=== PATIENT | male | born 1980 | race Caucasian/White ===

== ENCOUNTER 2018-02-27 18:49 | Inpatient (IN) | payer SELFPAY ==
[~2018-02-27] VITALS: Ht 177.8 cm; Wt 95.3 kg
[~2018-02-27 18:49] MED LIST: PLAVIX75 MG PO
[2018-02-27] MEDS ORDERED: DIPHENHYDRAMINE HCL INJ 50 MG/ML VIAL IV ONE (19:30)
[2018-02-27] MEDS ORDERED: FAMOTIDINE 20 MG/2 ML VIAL IV ONE (19:30)
[2018-02-27] MEDS ORDERED: SODIUM CHLORIDE 0.9% 1000ML 1,000 ML IV STA (19:30)
[2018-02-27] MEDS ORDERED: PROMETHAZINE 25MG/ NS 50ML (IV) IV ONE (19:30)
[2018-02-27] MEDS ORDERED: MORPHINE SULFATE 2 MG/ML SYR INJ STA (19:30)
[2018-02-27 19:42] LABS: BASOPHILS % 0.2 % (0.0-1.0); EOSINOPHILS % 0.4 % (0.0-6.0); HEMATOCRIT 29.3 % (38.2-49.6); HEMOGLOBIN 8.8 g/dL (14.0-18.0); LYMPHOCYTES # (AUTO) 0.4 (1.0-3.2); LYMPHOCYTES % 6.8 % (18.0-39.1); MEAN CORPUSCULAR HEMOGLOBIN 26.9 pg (28-32); MEAN CORPUSCULAR VOLUME 89.6 fL (81-99); MONOCYTES # (AUTO) 0.5 (0.2-0.8); MONOCYTES % 10.3 % (4.4-11.3); NEUTROPHILS # (AUTO) 4.1 (2.1-6.9); NEUTROPHILS % 80.5 % (38.7-80.0); PLATELET COUNT 234 x10e3/uL (140-360); RED BLOOD COUNT 3.27 x10e6/uL (4.3-5.7); RED CELL DISTRIBUTION WIDTH 18.6 % (11.7-14.4)
[2018-02-27] MEDS ORDERED: DIPHENHYDRAMINE HCL INJ 50 MG/ML VIAL ONE (19:47)
[2018-02-27 19:55] LABS: ALANINE AMINOTRANSFERASE 34 IU/L (0-55); ALBUMIN 2.7 g/dL (3.5-5.0); ALBUMIN/GLOBULIN RATIO 0.9 (0.8-2.0); ALKALINE PHOSPHATASE 117 IU/L (40-150); ANION GAP 15.3 mmol/L (8-16); BLOOD UREA NITROGEN 5 mg/dL (7-26); BUN/CREATININE RATIO 7 (6-25); CALCIUM 8.6 mg/dL (8.4-10.2); CARBON DIOXIDE 21 mmol/L (22-29); CHLORIDE 109 mmol/L (98-107); EST GLOMERULAR FILTRATION RATE > 60 ML/MIN (60-); GLUCOSE 107 mg/dL (74-118); POTASSIUM 3.3 mmol/L (3.5-5.1); SODIUM 142 mmol/L (136-145)
--- NOTE | 2018-02-27 20:42 | Diagnostic Imaging Report ---
EXAMINATION: CHEST SINGLE (PORTABLE) INDICATION: \S\look for pneumonia \S\[id number] \S\2024 COMPARISON: None FINDINGS: AP view TUBES and LINES: Left central venous catheter with tip overlying the superior right atrium. LUNGS: Lungs are well inflated. Medial right lower lobe consolidation. PLEURA: No pleural effusion or pneumothorax. HEART AND MEDIASTINUM: The cardiomediastinal silhouette is unremarkable.. BONES AND SOFT TISSUES: No acute osseous lesion. Soft tissues are unremarkable. UPPER ABDOMEN: No free air under the diaphragm. IMPRESSION: Right medial lower lobe consolidation suggestive of pneumonia. Recommend follow-up chest radiograph in 4-6 weeks. Signed by: Dr. Kamila Odell M.D. on 02/27/2018 8:39 PM
[2018-02-27 21:05] LABS: LYMPHOCYTES % (MANUAL) 4 % (19-48); MONOCYTES % (MANUAL) 7 % (3.4-9.0); NEUTROPHILS % (MANUAL) 89 % (40-74); PLATELET ESTIMATE ADEQUATE; PLATELET MORPHOLOGY COMMENT NORMAL; RBC MORPHOLOGY COMMENT NORMAL
[2018-02-27 21:06] LABS: ANISOCYTOSIS SLIGHT; POIKILOCYTOSIS SLIGHT
--- NOTE | 2018-02-27 21:10 | Diagnostic Imaging Report ---
EXAMINATION: CT of the lumbar spine HISTORY: Broke back 2 weeks ago, acute pain COMPARISON: None available TECHNIQUE: Multidetector helical axial images were obtained without contrast from L1 to S1. The images were reconstructed using bone and soft tissue algorithms and were viewed in axial, sagittal, and coronal planes. Dose modulation, iterative reconstruction, and/or weight based adjustment of the mA/kV was utilized to reduce the radiation dose to as low as reasonably achievable. FINDINGS: Alignment: Normal alignment and lordosis. Vertebral bodies: -Diffuse osteopenia L3-L4 intervertebral disc. -Age indeterminate likely chronic moderate compression fracture of the L2, L3 and L4 vertebral bodies, with decreased vertebral body height by approximately 40-50%, with depression of the superior endplate. Minimal about 2 mm posterior retropulsion of the superior endplates of L2, L3 and L4, with mild canal narrowing at L3-L4. -Mild chronic compression fracture of the L1 vertebral body, with depression of the superior endplate and decreased vertebral body height by approximately 30% centrally, no posterior retropulsion. Minimal chronic anterior wedging of the T12 vertebral body. -Status post percutaneous vertebral cement injection at L4, with small amount of cement extruded within the L3-L4 intervertebral disc. Paraspinal muscles: Mild atrophy of the lumbosacral spinal muscles. Partially visualized IVC filter. Intervertebral disks: L1-L2: Normal. L2-L3: Minimal symmetric disc bulge without stenosis. L3-L4: Mild symmetric disc bulge and facet arthrosis. Mild canal and foraminal narrowing. L4-L5: Mild symmetric disc bulge without significant stenosis. L5-S1: Minimal symmetric disc bulge without stenoses. IMPRESSION: 1. Age-indeterminate likely chronic moderate compression fractures of the L2, L3 and L4 vertebral bodies. Comparison to prior studies is recommended to determine stability of these findings. 2. Mild chronic compression fractures of the T12 and L1 vertebral bodies. 3. Minimal posterior retropulsion and disc bulge at L3-L4 results in mild canal and foraminal narrowing. 4. Status post percutaneous vertebral cement injection at L4. 5. Severe osteopenia. Signed by: Dr. Lindsay Singh M.D. on 02/27/2018 9:07 PM
[2018-02-27 21:13] LABS: AMPHETAMINES SCREEN,URINE NEGATIVE (NEGATIVE); CLARITY,URINE CLEAR (CLEAR); COLOR,URINE YELLOW (YELLOW); KETONES,URINE NEGATIVE (NEGATIVE); LEUKOCYTE ESTERASE ,URINE NEGATIVE (NEGATIVE); NITRITE,URINE NEGATIVE (NEGATIVE); PHENCYCLIDINE SCREEN,URINE NEGATIVE (NEGATIVE); PROTEIN,URINE DIPSTICK NEGATIVE (NEGATIVE)
[2018-02-27 21:14] LABS: BENZODIAZEPINES SCREEN,URINE NEGATIVE (NEGATIVE); BILIRUBIN,URINE NEGATIVE (NEGATIVE); URINE UROBILINOGEN 0.2 mg/dL (0.2 - 1)
[2018-02-27] MEDS ORDERED: VANCOMYCIN 1GM/NS 250 ML 250 ML IV ONE (21:15)
[2018-02-27 21:23] LABS: RBC,URINE 0-5 /HPF (0-5); WBC,URINE (MAN) 21-50 /HPF (0-5)
[2018-02-27 21:25] LABS: BACTERIA,URINE RARE /HPF
[2018-02-27 21:28] LABS: MUCUS,URINE MODERATE (RARE)
[2018-02-27] MEDS ORDERED: DIPHENHYDRAMINE HCL INJ 50 MG/ML VIAL IV PRN (21:30)
[2018-02-27] MEDS ORDERED: LACTULOSE SYRUP 20 GM/30 ML UDC PO PRN (21:30)
[2018-02-27] MEDS ORDERED: ZOLPIDEM TARTRATE 5 MG TAB PO PRN (21:30)
[2018-02-27] MEDS: PIPER-TAZ 3.375 GM 50 ML IV SCH (21:34)
[2018-02-27 21:52] LABS: CREATINE KINASE MB 1.1 ng/mL (0-5.0)
[2018-02-27] MEDS: D5.45%NS/KCL 20MEQ 1,000 ML IV SCH (22:00)
[2018-02-27] MEDS: ACETAMINOPHEN 325 MG TAB PO PRN (22:05)
[2018-02-27] MEDS ORDERED: LORAZEPAM INJ 2 MG/ML VIAL ONE (22:19)
[2018-02-27] MEDS ORDERED: LORAZEPAM INJ 2 MG/ML VIAL IV ONE (22:30)
[2018-02-27] MEDS ORDERED: ATIVAN2 MG IV (23:36)
[2018-02-27] MEDS ORDERED: DILAUDID2 MG IV (23:36)
[2018-02-27] MEDS ORDERED: KEPPRA500 MG IV (23:36)
[2018-02-27] MEDS ORDERED: METHOTREXATE SC (23:36)
[2018-02-27] MEDS ORDERED: DEXAMETHASONE4 MG IV (23:36)
[2018-02-27] MEDS ORDERED: PROMETHAZINE HC25 M1 IV (23:36)
[2018-02-27] MEDS ORDERED: METHYLPREDNISOLO8 MG IV (23:36)
[2018-02-27] MEDS ORDERED: HUMIRA40 MG/0.8 SC (23:36)
[2018-02-27] MEDS: METOPROLOL TARTRATE INJ 1 MG/ML VIAL IV SCH (23:43)
--- NOTE | 2018-02-27 23:59 | Diagnostic Imaging Report ---
EXAMINATION: MRI of the lumbar spine without contrast HISTORY: Broke back 2 weeks ago, status post fall today with worsening pain, evaluate for epidural abscess. COMPARISON: Lumbar spine CT performed on the same day TECHNIQUE: Sagittal T1, T2, STIR; axial T2 and proton density. Image quality: Motion artifact limits evaluation of most of the sequences in spite of sedation. Patient couldn't remain still. FINDINGS: It is assumed that there are 5 lumbar vertebrae. Curvature/Alignment: Normal lordosis. Vertebrae: -Prominent increased T1 bone marrow signal intensity related to fatty replacement, secondary to osteoporosis, disproportionate for patient's age and gender. -Again noted moderate compression fractures of the L2, L3 and L4 vertebral bodies, with subchondral bone marrow edema, consistent with recent fractures. Again there is decreased vertebral body height by approximately 40-50% without posterior retropulsion. Status post kyphoplasty/vertebroplasty of L4 with a small amount of cement within the L3-L4 disc, better visualized with CT performed on the same day. -Mild chronic compression fracture of the L1 vertebral body, with depression of the superior endplate and decreased vertebral body height by approximately 30% centrally, no posterior retropulsion. Conus: Normal, terminating at L1 Cauda equina: Unremarkable. Lower thoracic: Unremarkable. Paraspinal soft tissues: Unremarkable. Degenerative changes: L1-L2: Unremarkable. L2-L3: Mild symmetric folds and posterior processes. Minimal canal and foraminal narrowing. L3-L4: Mild symmetric disc bulge and facet processes. Mild canal and foraminal narrowing. L4-L5: Minimal disc bulge and facet arthrosis without stenosis. Left posterior paraspinal musculature edema from L4 to L5 which may correspond to muscle sprain. L5-S1: Minimal disc bulge and facet arthrosis without stenosis. IMPRESSION: Suboptimal study due to motion artifact. 1. No evidence of epidural abscess in this unenhanced study. 2. Acute osteoporotic compression fracture of the L2, L3 and L4 vertebral bodies without posterior retropulsion or canal stenosis. Comparison to prior studies is advised to determine stability. 3. Mild chronic compression fractures of the T12 and L1 vertebral bodies. 4. Mild degenerative canal and foraminal stenosis at L3-L4. 5. Left paraspinal muscle edema at L4-L5 may correspond to muscle sprain, which could explain patient's new pain. Signed by: Dr. Lindsay Singh M.D. on 02/27/2018 11:55 PM
[2018-02-28] VITALS (9 sets, daily range): BP systolic 124–173; BP diastolic 86–111
[2018-02-28] MEDS: MORPHINE SULFATE INJ 4 MG/ML INJ IV PRN ×2 (00:35→06:12)
[2018-02-28] MEDS: IPRATROPIUM BROMIDE 0.02% 2.5 ML NEB NEB SCH ×4 (01:30→20:32)
[2018-02-28] MEDS: PIPER-TAZ 3.375 GM 50 ML IV SCH ×4 (03:11→20:20)
[2018-02-28] MEDS ORDERED: VANCOMYCIN 1GM/NS 250 ML 250 ML IV SCH (04:00)
[2018-02-28] MEDS: D5.45%NS/KCL 20MEQ 1,000 ML IV SCH ×2 (05:30→13:30)
[2018-02-28] MEDS: METOPROLOL TARTRATE INJ 1 MG/ML VIAL IV SCH ×2 (06:12→12:23)
[2018-02-28 06:34] LABS: BASOPHILS % 0.6 % (0.0-1.0); EOSINOPHILS % 0.6 % (0.0-6.0); HEMATOCRIT 27.8 % (38.2-49.6); HEMOGLOBIN 8.2 g/dL (14.0-18.0); LYMPHOCYTES # (AUTO) 0.2 (1.0-3.2); MEAN CORPUSCULAR HEMOGLOBIN 26.7 pg (28-32); MEAN CORPUSCULAR HGB CONC 29.5 g/dL (31-35); MEAN CORPUSCULAR VOLUME 90.6 fL (81-99); MONOCYTES # (AUTO) 0.4 (0.2-0.8); MONOCYTES % 11.1 % (4.4-11.3); NEUTROPHILS # (AUTO) 2.7 (2.1-6.9); NEUTROPHILS % 78.9 % (38.7-80.0); PLATELET COUNT 216 x10e3/uL (140-360); RED BLOOD COUNT 3.07 x10e6/uL (4.3-5.7); RED CELL DISTRIBUTION WIDTH 18.9 % (11.7-14.4)
[2018-02-28 06:55] LABS: ANION GAP 12.3 mmol/L (8-16); BLOOD UREA NITROGEN < 5 mg/dL (7-26); BUN/CREATININE RATIO 7 (6-25); CARBON DIOXIDE 22 mmol/L (22-29); CHLORIDE 110 mmol/L (98-107); CREATININE, SERUM 0.74 mg/dL (0.72-1.25); EST GLOMERULAR FILTRATION RATE > 60 ML/MIN (60-); GLUCOSE 90 mg/dL (74-118); POTASSIUM 3.3 mmol/L (3.5-5.1); SODIUM 141 mmol/L (136-145)
[2018-02-28 07:19] LABS: CREATINE KINASE MB 0.8 ng/mL (0-5.0)
[2018-02-28 07:45] LABS: EOSINOPHILS % (MANUAL) 2 % (0-7); LYMPHOCYTES % (MANUAL) 3 % (19-48); MONOCYTES % (MANUAL) 7 % (3.4-9.0); NEUTROPHILS % (MANUAL) 88 % (40-74); NUCLEATED RED BLOOD CELLS 1
[2018-02-28 07:51] LABS: PLATELET ESTIMATE ADEQUATE; PLATELET MORPHOLOGY COMMENT NORMAL; RBC MORPHOLOGY COMMENT ABNORMAL
[2018-02-28 07:56] LABS: HYPOCHROMASIA SLIGHT
[2018-02-28 07:57] LABS: ANISOCYTOSIS MODE; OVALOCYTES FEW; POIKILOCYTOSIS SLIGHT; TEAR DROP CELLS FEW
[2018-02-28] MEDS: FAMOTIDINE 20 MG/2 ML VIAL IV SCH ×2 (08:46→18:11)
[2018-02-28] MEDS: PROMETHAZINE 25MG/ NS 50ML (IV) IV PRN ×2 (08:58→13:26)
[2018-02-28] MEDS: HYDROMORPHONE 1MG/1ML INJ IV PRN ×3 (09:20→20:19)
[2018-02-28] MEDS ORDERED: ACETAMINOPHEN 1000 MG/100 ML 100 ML IV ONE (09:23)
[2018-02-28 14:23] LABS: CREATINE KINASE MB 0.8 ng/mL (0-5.0)
[2018-02-28] MEDS ORDERED: PROMETHAZINE HCL 25 MG TAB PO PRN (14:30)
[2018-02-28 14:50] LABS: % IRON SATURATION 15 % (15-50); IRON 41 ug/dL (65-175); TOTAL IRON BINDING CAPACITY 272 ug/dL (261-478); TRANSFERRIN 194 mg/dL (174-364)
[2018-02-28] MEDS: POTASSIUM CHLORIDE 20MEQ/100ML 100 ML IV PRN (15:23)
[2018-02-28] MEDS: LORAZEPAM INJ 2 MG/ML VIAL IV PRN (16:35)
[2018-02-28] MEDS ORDERED: LEVETIRACETAM 500MG/5ML VIAL 500 MG in SODIUM CHLORIDE 0.9% 100 ML 100 ML IV SCH (16:45)
--- NOTE | 2018-02-28 16:59 | Diagnostic Imaging Report ---
Exam: Abdominal film Clinical History: Left lower quadrant abdominal pain for 3 days Comparison: None. DISCUSSION: Frontal view of the abdomen shows a nonobstructive bowel gas pattern with mild amount of retained stool.Likely high riding cecum. No air filled, dilated loops of bowel. There are no abnormal calcifications.No pneumoperitoneum. No acute bony abnormalities. Vertebroplasty changes L3. IVC filter in place. IMPRESSION: 1. Nonobstructive bowel gas pattern. The staff physician below has personally reviewed this exam on the date of dictation. Signed by: Dr. Ernesto Carlisle M.D. on 02/28/2018 4:55 PM
[2018-02-28] MEDS ORDERED: LEVETIRACETAM 500 MG TAB PO SCH (17:00)
--- NOTE | 2018-02-28 17:32 | History and Physical ---
The patient recently moved from [place]. Admitted after tripping and severe back pain. Warne like something popped in his back, and he developed numbness in the feet. He has a complex history including that of Crohn disease with multiple abdominal surgeries, chronically on TPN. He has been on tube feedings in the past and has a feeding tube. He has a history of glioblastoma multiforme diagnosed 10 months ago treated with radiation, transsphenoid resection and chemotherapy. He is currently scheduled to see Dr. Romeo for additional therapy. He has moved from [place], [place]. He has a history of IVC filter. He has had an L4 kyphoplasty in the past. He has had appendectomy, gallbladder surgery, colon and small-bowel resection. He has a small, short bowel. Old records are not available. His mother is bringing them. He denies smoking, drinking or drugs. Medications at home are listed as Humira, Decadron, Dilaudid, Keppra, Ativan, methotrexate, dexamethasone, Phenergan. He is complaining of back pain and blurred vision. Warne to have pneumonia on admitting chest x-ray, right lower lobe infiltrate. PHYSICAL EXAMINATION GENERAL: He is a well-developed, white male, somewhat cushingoid. VITALS: Temperature 98.1, pulse 87, blood pressure 154/111. HEENT: Head is normocephalic and atraumatic. Cushingoid. LUNGS: Clear anteriorly. HEART: Regular rhythm. Sinus tachycardia. ABDOMEN: Diffusely tender. A feeding tube is in place in the left upper quadrant. EXTREMITIES: Not edematous. catheter left chest wall IMPRESSION 1. Glioblastoma. 2. Anemia, possible iron deficiency possibly led to malabsorption. 3. Degenerative disease of the spine. Degenerative disk disease L2-3, L3-4, L4-5. Chronic fracture at T12-L1. Degenerative disease, L3-L4. Edema at L4-5. 4 pneumonia right lower lobe PLAN: GI, neurosurgical and neurology opinion. Support. Tube feedings. Oral feedings. Resume home medications. Awaiting old records. Therapy of pneumonia. Thank you for this kind referral. Job#: [id number] ALEXA GALLEGO
[2018-02-28] MEDS ORDERED: LORAZEPAM 1 MG TAB PO PRN (18:00)
[2018-02-28] MEDS ORDERED: LORAZEPAM 1 MG TAB PO SCH (18:00)
[2018-02-28] MEDS: LEVETIRACETAM 500MG/5ML VIAL 500 MG in SODIUM CHLORIDE 0.9% 100 ML 100 ML IV SCH (18:11)
[2018-02-28] MEDS: ACETAMINOPHEN 325 MG TAB PO PRN (22:00)
[2018-02-28] MEDS: DEXTROSE 5%/0.9% SOD CHL 1,000 ML IV SCH (22:22)
[2018-02-28] MEDS: AZITHROMYCIN 500MG/NS 250 ML 250 ML IV SCH (22:22)
[2018-02-28] MEDS: CLONIDINE HCL 0.1 MG/24 HR 1 EA PATCH TOP SCH (22:23)
[2018-03-01] VITALS (8 sets, daily range): BP systolic 153–173; BP diastolic 93–107
[2018-03-01] MEDS ORDERED: VANCOMYCIN 750MG/NS 150ML IVPB 150 ML IV SCH
[2018-03-01] MEDS: HYDROMORPHONE 1MG/1ML INJ IV PRN ×6 (01:23→22:30)
[2018-03-01] MEDS: PROMETHAZINE 25MG/ NS 50ML (IV) IV PRN ×2 (01:23→12:51)
[2018-03-01] MEDS: IPRATROPIUM BROMIDE 0.02% 2.5 ML NEB NEB SCH ×4 (01:47→19:00)
[2018-03-01] MEDS: LORAZEPAM INJ 2 MG/ML VIAL IV PRN ×3 (03:35→17:17)
[2018-03-01] MEDS: PIPER-TAZ 3.375 GM 50 ML IV SCH ×4 (03:35→21:34)
[2018-03-01] MEDS: METOCLOPRAMIDE HCL 10 MG/2ML VIAL IV SCH ×4 (05:20→23:40)
[2018-03-01] MEDS: LEVETIRACETAM 500MG/5ML VIAL 500 MG in SODIUM CHLORIDE 0.9% 100 ML 100 ML IV SCH ×2 (05:20→17:17)
[2018-03-01 06:02] LABS: BASOPHILS % 0.3 % (0.0-1.0); EOSINOPHILS % 0.6 % (0.0-6.0); HEMATOCRIT 26.4 % (38.2-49.6); LYMPHOCYTES # (AUTO) 0.3 (1.0-3.2); LYMPHOCYTES % 8.5 % (18.0-39.1); MEAN CORPUSCULAR HEMOGLOBIN 27.1 pg (28-32); MEAN CORPUSCULAR HGB CONC 30.3 g/dL (31-35); MEAN CORPUSCULAR VOLUME 89.5 fL (81-99); MONOCYTES # (AUTO) 0.4 (0.2-0.8); MONOCYTES % 12.3 % (4.4-11.3); NEUTROPHILS # (AUTO) 2.4 (2.1-6.9); NEUTROPHILS % 76.7 % (38.7-80.0); PLATELET COUNT 193 x10e3/uL (140-360); RED BLOOD COUNT 2.95 x10e6/uL (4.3-5.7); RED CELL DISTRIBUTION WIDTH 18.7 % (11.7-14.4)
[2018-03-01 06:28] LABS: ALANINE AMINOTRANSFERASE 30 IU/L (0-55); ALBUMIN 2.3 g/dL (3.5-5.0); ALBUMIN/GLOBULIN RATIO 0.9 (0.8-2.0); ALKALINE PHOSPHATASE 117 IU/L (40-150); ANION GAP 12.4 mmol/L (8-16); BLOOD UREA NITROGEN 5 mg/dL (7-26); BUN/CREATININE RATIO 7 (6-25); CARBON DIOXIDE 25 mmol/L (22-29); CHLORIDE 109 mmol/L (98-107); CREATININE, SERUM 0.68 mg/dL (0.72-1.25); EST GLOMERULAR FILTRATION RATE > 60 ML/MIN (60-); GLUCOSE 89 mg/dL (74-118); POTASSIUM 3.4 mmol/L (3.5-5.1); SODIUM 143 mmol/L (136-145)
[2018-03-01 07:43] LABS: BAND NEUTROPHILS % (MANUAL) 6 %; LYMPHOCYTES % (MANUAL) 13 % (19-48); METAMYELOCYTES % (MANUAL) 1 % (0-0); MONOCYTES % (MANUAL) 11 % (3.4-9.0); NEUTROPHILS % (MANUAL) 69 % (40-74); PLATELET ESTIMATE ADEQUATE; PLATELET MORPHOLOGY COMMENT NORMAL; RBC MORPHOLOGY COMMENT NORMAL
[2018-03-01] MEDS: FAMOTIDINE 20 MG/2 ML VIAL IV SCH ×2 (08:19→17:17)
[2018-03-01] MEDS: DEXAMETHASONE 4 MG TAB PO SCH (09:00)
[2018-03-01] MEDS: VANCOMYCIN 750MG/NS 150ML IVPB 150 ML IV SCH ×2 (09:15→22:02)
[2018-03-01] MEDS: DEXTROSE 5%/0.9% SOD CHL 1,000 ML IV SCH ×2 (10:05→21:35)
[2018-03-01] MEDS: POTASSIUM CHLORIDE 20MEQ/100ML 100 ML IV PRN (10:37)
[2018-03-01] MEDS: METOPROLOL TARTRATE INJ 1 MG/ML VIAL IV PRN ×2 (11:43→20:49)
--- NOTE | 2018-03-01 15:00 | Consultation ---
DATE OF CONSULTATION: March 01, 2018 NEUROLOGY CONSULT HISTORY OF PRESENT ILLNESS: Mr. Borges is a 37-year-old [id number] man with past medical history significant for Crohn's disease and glioblastoma multiforme (GBM) with secondary seizure disorder, admitted to [facility] on February 27, 2018, status post fall with multiple vertebral compression fractures. While visiting [place], [place], approximately 2 weeks ago, the patient fell, sustaining a compression fracture to the L4 vertebra. Mr. Borges was hospitalized for 1 week. During this time, he underwent kyphoplasty and physical therapy. He was discharged to home with a walker. Approximately 2 days ago, the patient was stepping up on a curb when he fell over his walker, hitting his lower back on the curb. Mr. Borges reports hearing and feeling a "loud pop." Witnesses to the fall notified emergency medical services. Mr. Borges was transported by ambulance to [facility] where he was admitted for further evaluation and treatment of his symptoms. While in the hospital, the patient underwent a MRI of the lumbar spine, which revealed acute osteoporotic compression fractures at L2, L3 and L4. After his fall 2 weeks ago, the patient experienced mild weakness and numbness in both legs. These symptoms acutely worsened after the patient's fall 2 days ago. Mr. Borges endorses severe low back pain as well. The patient does not endorse bladder, bowel or sexual dysfunction. Before 2 weeks ago, Mr. Borges did not have low back pain, weakness or numbness in his legs. He was able to ambulate without difficulty and without an assistive device. REVIEW OF SYSTEMS: Fatigue, nausea, decreased oral intake, weakness of both legs, numbness of both legs, and severe low back pain. Otherwise, the 12-point review of systems is negative. PAST MEDICAL HISTORY: Crohn's disease, GBM diagnosed approximately 10 months ago. The patient is status post whole brain radiation and has received 9 of 10 cycles of chemotherapy. Mr. Borges has experienced 1 seizure in past secondary to the presence of a GBM. PAST SURGICAL HISTORY: Small and large bowel resections, appendectomy, cholecystectomy, transsphenoidal brain biopsy, PEG tube placement, Port-A-Cath placement, kyphoplasty at L4. PAST HOSPITALIZATIONS: Surgeries/procedures as listed, chemotherapy. FAMILY MEDICAL HISTORY: Crohn disease, breast cancer in the patient's mother and sister. SOCIAL HISTORY: The patient is single. He is not employed. The patient does not report current or prior tobacco, alcohol, or recreational drug use. HOME MEDICATIONS: Please see the list available in the electronic medical record. ALLERGIES: TORADOL, TRAMADOL, NSAIDS. NO KNOWN FOOD ALLERGIES. NO KNOWN ALLERGIES TO LATEX. THE PATIENT DOES REPORT AN IODINE ALLERGY. PHYSICAL EXAMINATION VITAL SIGNS: Height 70 inches, weight 204 pounds, BMI 29.3 kg per meter squared. Blood pressure 173/97 mmHg, pulse 139 beats per minute, respiratory rate 20 breaths per minute, oxygen saturation 95% on room air. GENERAL: The patient is awake and alert, distressed secondary to pain. Overweight. HEENT: Normocephalic and atraumatic. Pupils are pinpoint. Moist mucous membranes. NECK: Supple. No appreciable thyromegaly. No appreciable carotid bruits. CARDIOVASCULAR: S1 and S2 tachycardic. No murmurs rubs, or gallops. RESPIRATORY: Clear to auscultation bilaterally. No wheezes, rhonchi or rales. EXTREMITIES: The skin is warm and dry. No clubbing, cyanosis, or edema. The posterior tibial and dorsalis pedis pulses are 2+ and symmetric. SKIN: No rashes or lesions. NEUROLOGIC MEMORY/ATTENTION: The patient is awake and alert. Oriented to person, place time, and situation. CRANIAL NERVES: Cranial nerve 1 is not tested. Cranial nerve II, III, IV, and : Pupils are pinpoint. Extraocular movements intact. No nystagmus. Cranial nerve V: Sensation to light touch and pinprick is intact in the bilateral V1 through V3 distributions. Strength of the temporalis and masseter muscles are within normal limits. Cranial nerve VII: The face is symmetric as are all facial movements. Strength is within normal limits. Cranial nerve VIII: Hearing is intact to finger rub bilaterally. Cranial nerve IX and X: The soft palate elevates equally and symmetrically. Cranial nerve XI: Normal strength of the bilateral sternocleidomastoid and trapezius muscles. Cranial nerve XII: The tongue protrudes midline and moves symmetrically from side to side. STRENGTH: Bulk is normal. Strength is 5/5 in the bilateral deltoids, biceps, triceps, wrist flexors and extensors, finger flexors and extensors, intrinsic and tonsils. Assessment of lower extremity strength is limited secondary to pain. Grossly, the left leg is 4/5 while the right leg is 5/5. DTRs: Are 2+ and symmetric at the triceps, biceps and brachial radialis. Deep tendon reflexes are absent and symmetric at the patellas and Achilles. Plantar responses are flexor bilaterally. SENSATION: Is intact to light touch and pinprick in both arms and both legs. However, Mr. Borges reports both light touch and pinprick "feel different" over the legs. CEREBELLAR: Deferred. GAIT: Deferred. SPEECH: Spontaneous speech is mildly dysarthric without aphasia. Repetition is intact. INVOLUNTARY MOVEMENTS: None. PRONATOR DRIFT: As per motor exam. LABORATORY DATA: The patient's basic metabolic panel is significant for a low potassium of 3.3, elevated chloride of 110, and low calcium of 8. The patient's lactic acid was 22.7. Cardiac enzymes are negative times 3. Liver function panel reveals a low total protein of 4.9, as well as a low albumin of 2.3. The CBC with differential and platelets reveals a white blood cell count of 3.17 with a left shift. The hemoglobin and hematocrit are 8 and 26.4, respectively. The platelet count is 193,000. Urinalysis collected on February 27, 2018, revealed 21-50 white blood cells, but was negative for nitrites and leukocyte esterase. Rare urine bacteria was seen. A urine drug screen was positive for opiates. DIAGNOSTIC STUDIES: Electrocardiogram on February 27, 2018, sinus tachycardia at 152 beats per minute. Chest x-ray on February 27, 2018, right medial lower lobe consolidation suggestive of pneumonia. Recommend followup chest radiograph in 4-6 weeks. MRI of the lumbar spine without contrast on February 27, 2018, suboptimal study due to motion artifact. 1. No evidence of epidural abscess in the unenhanced any. 2. Acute osteoporotic compression fracture of the L2, L3, and L4 vertebral bodies without posterior retropulsion or canal stenosis. Comparison to prior study is advised to determine stability. 3. Mild chronic compression fractures of the T12 and L1 vertebral body. 4. Mild degenerative canal or foraminal stenosis at L3-L4. 5. Left paraspinal muscle edema at L4-L5, may correspond to muscle sprain, which could explain the patient's new pain. Abdomen x-ray on February 28, 2018, nonobstructive bowel gas pattern. ASSESSMENT AND PLAN: Mr. Borges is a 37-year-old [id number]-tknlserw man with an extensive past medical history as documented, admitted to [facility] on February 27, 2018, status post fall with multiple acute lumbar spine compression fractures resulting in severe low back pain, mild lower extremity weakness, and numbness. The patient has undergone a thorough neurological examination with findings detailed above. Mr Borges's laboratory data and other diagnostic studies have been reviewed and are documented above. RECOMMENDATIONS 1. Consult Dr. Keyshawn Calhoun with neurosurgery for kyphoplasty. 2. Continue treatment with the patient's home medication of dexamethasone 4 mg by mouth daily for cerebral edema. 3. Continue Keppra 500 mg by mouth twice daily for seizure prophylaxis. 4. Defer treatment of the remaining medical comorbidities to the primary and other services following the patient. 5. Defer treatment of the glioblastoma multiforme to the patient's neuro oncologist. Thank you for this consultation. Time spent 50 minutes. Job#: [id number] ELIZABETH GALLEGO
[2018-03-01] MEDS: AZITHROMYCIN 500MG/NS 250 ML 250 ML IV SCH (20:10)
[2018-03-02] VITALS (11 sets, daily range): BP systolic 130–165; BP diastolic 90–107
[2018-03-02] MEDS: HYDROMORPHONE 1MG/1ML INJ IV PRN (02:30)
[2018-03-02] MEDS: PIPER-TAZ 3.375 GM 50 ML IV SCH ×4 (03:39→22:00)
--- NOTE | 2018-03-02 03:51 | Diagnostic Imaging Report ---
EXAM: CT ABDOMEN/PELVIS WO DATE: 03/02/2018 2:43 AM INDICATION: Crohn's disease, extensive surgical history COMPARISON: None TECHNIQUE: The abdomen and pelvis were scanned using a multidetector helical scanner. Coronal and sagittal reformations were obtained. CT low dose techniques were utilized, as applicable. IV Contrast: 0 ml Isovue 300/370 FINDINGS: Lack of IV contrast decreases sensitivity in evaluating abdominal and pelvic organs. LOWER THORAX: Motion artifact. Partially imaged central venous catheter tip within the right atrium. Mild bibasilar opacity, likely atelectasis. Trace pleural fluid or thickening LIVER/BILIARY: Likely underlying hepatic steatosis. No focal lesions seen. GALLBLADDER: Surgically absent SPLEEN: Unremarkable PANCREAS: Unremarkable ADRENALS: No nodules KIDNEYS: No stones. No hydronephrosis. GI TRACT: G-tube terminates within the gastric antrum. No evidence of bowel obstruction or wall thickening. VESSELS: Infrarenal IVC filter in place with the struts protruding outside the lumen. PERITONEUM/RETROPERITONEUM: No free air or fluid LYMPH NODES: No lymphadenopathy REPRODUCTIVE ORGANS/BLADDER: Unremarkable SOFT TISSUES: Intramuscular fat density and calcification along the right adductor muscle (image 99) and left internus obturator, which may be posttraumatic (sequelae of calcific myonecrosis). BONES: Healing right inferior pubic ramus and rib fractures. Prior vertebral plasty at L4. Mild compression deformities at L2 and L3 and central endplate compression at L1. IMPRESSION: No acute abnormality on noncontrast evaluation. Signed by: Dr Dorys Rich MD on 03/02/2018 3:48 AM
[2018-03-02] MEDS: LEVETIRACETAM 500MG/5ML VIAL 500 MG in SODIUM CHLORIDE 0.9% 100 ML 100 ML IV SCH ×2 (05:28→19:12)
[2018-03-02] MEDS: METOCLOPRAMIDE HCL 10 MG/2ML VIAL IV SCH ×3 (05:28→17:45)
[2018-03-02 06:09] LABS: BASOPHILS % 0.3 % (0.0-1.0); HEMATOCRIT 25.8 % (38.2-49.6); HEMOGLOBIN 7.8 g/dL (14.0-18.0); LYMPHOCYTES # (AUTO) 0.3 (1.0-3.2); MEAN CORPUSCULAR HEMOGLOBIN 27.1 pg (28-32); MEAN CORPUSCULAR HGB CONC 30.2 g/dL (31-35); MEAN CORPUSCULAR VOLUME 89.6 fL (81-99); MONOCYTES # (AUTO) 0.5 (0.2-0.8); MONOCYTES % 14.7 % (4.4-11.3); NEUTROPHILS # (AUTO) 2.4 (2.1-6.9); NEUTROPHILS % 75.4 % (38.7-80.0); PLATELET COUNT 188 x10e3/uL (140-360); RED BLOOD COUNT 2.88 x10e6/uL (4.3-5.7); RED CELL DISTRIBUTION WIDTH 18.6 % (11.7-14.4)
[2018-03-02 06:19] LABS: INR 1.27; PROTHROMBIN TIME 14.9 seconds (11.9-14.5)
[2018-03-02 06:20] LABS: PARTIAL THROMBOPLASTIN TIME 43.4 seconds (23.8-35.5)
[2018-03-02 06:30] LABS: ALANINE AMINOTRANSFERASE 23 IU/L (0-55); ALBUMIN 2.2 g/dL (3.5-5.0); ALBUMIN/GLOBULIN RATIO 0.9 (0.8-2.0); ALKALINE PHOSPHATASE 109 IU/L (40-150); ANION GAP 12.1 mmol/L (8-16); BLOOD UREA NITROGEN < 5 mg/dL (7-26); BUN/CREATININE RATIO 7 (6-25); CARBON DIOXIDE 25 mmol/L (22-29); CHLORIDE 107 mmol/L (98-107); CREATININE, SERUM 0.68 mg/dL (0.72-1.25); EST GLOMERULAR FILTRATION RATE > 60 ML/MIN (60-); GLUCOSE 91 mg/dL (74-118); POTASSIUM 3.1 mmol/L (3.5-5.1); SODIUM 141 mmol/L (136-145)
[2018-03-02] MEDS: IPRATROPIUM BROMIDE 0.02% 2.5 ML NEB NEB SCH ×3 (06:30→19:36)
[2018-03-02] MEDS: FAMOTIDINE 20 MG/2 ML VIAL IV SCH ×2 (09:00→17:44)
[2018-03-02] MEDS: VANCOMYCIN 750MG/NS 150ML IVPB 150 ML IV SCH ×2 (09:00→20:38)
[2018-03-02] MEDS: DEXAMETHASONE 4 MG TAB PO SCH (09:00)
[2018-03-02] MEDS ORDERED: POTASSIUM CHLORIDE 20MEQ/100ML 200 ML IV ONE (10:30)
[2018-03-02] MEDS ORDERED: FENTANYL 25 MCG/HR PATCH TOP SCH (12:15)
[2018-03-02] MEDS ORDERED: HYDROCODONE/APAP 10MG-325MG TAB PO PRN (12:15)
[2018-03-02] MEDS: DEXTROSE 5%/0.9% SOD CHL 1,000 ML IV SCH (12:47)
[2018-03-02] MEDS ORDERED: BUPIVACAINE HC 0.75% PF 10ML VIAL INJ ONE (13:46)
[2018-03-02] MEDS ORDERED: SODIUM CHLORIDE 0.9% 500ML 1,000 ML ONE (13:47)
[2018-03-02] MEDS ORDERED: LIDOCAINE HCL 2% LOCAL 20 ML VIAL ONE (13:47)
[2018-03-02] MEDS ORDERED: MIDAZOLAM HCL 2 MG/2 ML VIAL ONE ×2 (13:52→14:40)
[2018-03-02] MEDS ORDERED: FENTANYL CITRATE/PF 100MCG/2 ML INJ ONE ×2 (13:52→14:45)
[2018-03-02] MEDS ORDERED: SODIUM CHLORIDE 0.9% 50ML 50 ML ONE (13:55)
[2018-03-02] MEDS ORDERED: CEFAZOLIN SOD 1 GM VIAL ONE (13:55)
[2018-03-02 14:42] LABS: C DIFFICILE TOXIN A&B AMP PROB NEGATIVE (NEGATIVE); WBC,FECAL (FECAL LACTOFERRIN) NEGATIVE (NEGATIVE)
--- NOTE | 2018-03-02 17:29 | Consultation ---
DATE OF CONSULTATION: March 02, 2018 INFECTIOUS DISEASE CONSULTATION REASON FOR CONSULTATION: Fever, chills. HISTORY OF PRESENT ILLNESS: This is a patient who has recently moved from [place]. Apparently he tripped and fell and he had severe back pain. He is telling me a couple of weeks ago he fell and had the back pain and he had some type of kyphoplasty. The patient has complicated medical history, multiple abdominal surgeries, on TPN, obesity. The patient had a history of glioblastoma multiforme diagnosed 10 months ago and treated with radiation, transsphenoid resection and chemotherapy. He is currently scheduled to see Dr. Romeo for additional therapy, but he moved from [place]. Patient also has history of IVC filter for DVT. He had L4 kyphoplasty a couple of weeks ago, a history of appendectomy and cholecystectomy, colon surgery, small-bowel resection, short-bowel syndrome. Comes in after the fall with severe back pain, fever, chills, not feeling well. The patient has history of Crohn disease, glioblastoma multiforme, seizure disorder. The patient apparently was in [place], [place], 2 weeks ago. He fell, had compression fracture L4. He was hospitalized for a week. He underwent kyphoplasty, physical therapy, discharged home with a walker. Again, as mentioned above, before he came here he fell, had severe back pain. He also had the fever, chills. The patient had an MRI of the lumbar spine which revealed acute osteophytic compression fracture L2, L3, L4 after the fall. He had mild weakness, but apparently after the recent fall these symptoms are worse. Patient was admitted. He was seen by Neurology. Blood cultures have been ordered. So far 2 sets are negative. White count on admission is 5.4, hemoglobin 8.8, hematocrit 29. Sodium 143, potassium 3.4, creatinine 0.68. Urine was positive for opiate. C. diff was negative. Patient had a lumbar spine MRI which was suboptimal. There was no evidence of an abscess, but there was a huge compression fracture at L2, L3, L4 without retropulsion. REVIEW OF SYSTEMS GENERAL: He is currently alert, oriented, does not seem to be in acute distress since admission. When he first came here, the temperature 100.4 max. HEENT: Negative. PULMONARY: Negative. CARDIAC: Negative. PHYSICAL EXAMINATION GENERAL: He is alert, oriented, does not seem to be in acute distress. VITAL SIGNS: Stable. Currently afebrile. HEENT: He does not appear icteric. NECK: Supple. CHEST: Clear. HEART: S1 and S2. No S3 or S4, no murmur. ABDOMEN: Soft. IMPRESSION: Back pain, probably from trauma again. I would suggest to continue with antibiotic for now while we obtain the blood cultures. Obtain sed rate, C-reactive protein. No fever. Probably pneumonia. Agree with the apparent choice of IV antibiotic. Concerned about aspiration. Further recommendations are pending. Probably he would need 8 days of antibiotic to treat his pneumonia for now. Further recommendations to follow. Job#: [id number] EV
[2018-03-02] MEDS ORDERED: SODIUM CHLORIDE 0.9% 100 ML 100 ML ONE (17:43)
[2018-03-02] MEDS: AZITHROMYCIN 500MG/NS 250 ML 250 ML IV SCH (20:45)
[2018-03-02] MEDS: METOPROLOL TARTRATE INJ 1 MG/ML VIAL IV PRN (21:30)
[2018-03-03] VITALS (7 sets, daily range): BP systolic 127–172; BP diastolic 84–109
[2018-03-03] MEDS: METOCLOPRAMIDE HCL 10 MG/2ML VIAL IV SCH ×2 (00:12→05:48)
[2018-03-03] MEDS: IPRATROPIUM BROMIDE 0.02% 2.5 ML NEB NEB SCH ×4 (01:00→20:20)
[2018-03-03] MEDS: DEXTROSE 5%/0.9% SOD CHL 1,000 ML IV SCH (02:07)
[2018-03-03] MEDS: PIPER-TAZ 3.375 GM 50 ML IV SCH ×4 (03:30→20:34)
[2018-03-03] MEDS: LEVETIRACETAM 500MG/5ML VIAL 500 MG in SODIUM CHLORIDE 0.9% 100 ML 100 ML IV SCH ×2 (05:48→16:58)
[2018-03-03 06:04] LABS: BASOPHILS % 0.4 % (0.0-1.0); EOSINOPHILS % 1.1 % (0.0-6.0); HEMATOCRIT 25.8 % (38.2-49.6); HEMOGLOBIN 7.8 g/dL (14.0-18.0); LYMPHOCYTES # (AUTO) 0.3 (1.0-3.2); LYMPHOCYTES % 9.8 % (18.0-39.1); MEAN CORPUSCULAR HEMOGLOBIN 26.9 pg (28-32); MEAN CORPUSCULAR HGB CONC 30.2 g/dL (31-35); MONOCYTES # (AUTO) 0.4 (0.2-0.8); MONOCYTES % 15.2 % (4.4-11.3); NEUTROPHILS # (AUTO) 1.9 (2.1-6.9); NEUTROPHILS % 72.4 % (38.7-80.0); PLATELET COUNT 168 x10e3/uL (140-360); RED CELL DISTRIBUTION WIDTH 18.3 % (11.7-14.4)
[2018-03-03 06:42] LABS: ANION GAP 13.1 mmol/L (8-16); BLOOD UREA NITROGEN < 5 mg/dL (7-26); CALCIUM 8.2 mg/dL (8.4-10.2); CARBON DIOXIDE 24 mmol/L (22-29); CHLORIDE 109 mmol/L (98-107); CREATININE, SERUM 0.64 mg/dL (0.72-1.25); EST GLOMERULAR FILTRATION RATE > 60 ML/MIN (60-); GLUCOSE 87 mg/dL (74-118); POTASSIUM 4.1 mmol/L (3.5-5.1); SODIUM 142 mmol/L (136-145)
[2018-03-03 06:43] LABS: BUN/CREATININE RATIO 8 (6-25)
[2018-03-03] MEDS: FAMOTIDINE 20 MG/2 ML VIAL IV SCH ×2 (09:00→16:09)
[2018-03-03] MEDS: DEXAMETHASONE 4 MG TAB PO SCH (09:39)
[2018-03-03] MEDS: LIDOCAINE 5% PATCH TP SCH (09:39)
[2018-03-03] MEDS: VANCOMYCIN 750MG/NS 150ML IVPB 150 ML IV SCH ×2 (09:58→21:05)
[2018-03-03] MEDS: SODIUM CHLORIDE 0.9% IV SCH ×3 (12:25→23:14)
[2018-03-03] MEDS: METOCLOPRAMIDE IV SCH ×3 (12:25→23:14)
[2018-03-03] MEDS: HYDROMORPHONE 1MG/1ML INJ IV PRN ×2 (16:24→20:20)
[2018-03-03] MEDS: CLONIDINE HCL 0.1 MG/24 HR 1 EA PATCH TOP SCH (23:55)
[2018-03-04] VITALS: BP 167/103
[2018-03-04] MEDS: HYDROMORPHONE 1MG/1ML INJ IV PRN ×3 (00:18→08:19)
[2018-03-04] MEDS: IPRATROPIUM BROMIDE 0.02% 2.5 ML NEB NEB SCH ×2 (00:45→07:35)
[2018-03-04] MEDS: PIPER-TAZ 3.375 GM 50 ML IV SCH ×2 (03:40→09:08)
[2018-03-04 04:00] VITALS: BP 163/109
[2018-03-04 04:34] LABS: BASOPHILS % 0.3 % (0.0-1.0); LYMPHOCYTES # (AUTO) 0.2 (1.0-3.2); LYMPHOCYTES % 7.2 % (18.0-39.1); MEAN CORPUSCULAR HEMOGLOBIN 26.9 pg (28-32); MEAN CORPUSCULAR HGB CONC 30.4 g/dL (31-35); MEAN CORPUSCULAR VOLUME 88.5 fL (81-99); MONOCYTES # (AUTO) 0.5 (0.2-0.8); MONOCYTES % 16.7 % (4.4-11.3); NEUTROPHILS # (AUTO) 2.3 (2.1-6.9); NEUTROPHILS % 74.5 % (38.7-80.0); PLATELET COUNT 160 x10e3/uL (140-360)
[2018-03-04 04:50] LABS: ANION GAP 13.4 mmol/L (8-16); BLOOD UREA NITROGEN < 5 mg/dL (7-26); CALCIUM 7.8 mg/dL (8.4-10.2); CARBON DIOXIDE 21 mmol/L (22-29); CHLORIDE 109 mmol/L (98-107); EST GLOMERULAR FILTRATION RATE > 60 ML/MIN (60-); GLUCOSE 125 mg/dL (74-118); POTASSIUM 3.4 mmol/L (3.5-5.1); SODIUM 140 mmol/L (136-145)
[2018-03-04 04:59] LABS: BUN/CREATININE RATIO 7 (6-25)
[2018-03-04] MEDS: LEVETIRACETAM 500MG/5ML VIAL 500 MG in SODIUM CHLORIDE 0.9% 100 ML 100 ML IV SCH (05:23)
[2018-03-04] MEDS: METOCLOPRAMIDE IV SCH (06:39)
[2018-03-04] MEDS: SODIUM CHLORIDE 0.9% IV SCH (06:39)
[2018-03-04] MEDS: FAMOTIDINE 20 MG/2 ML VIAL IV SCH (08:19)
[2018-03-04 08:20] LABS: BASOPHILS % 0.3 % (0.0-1.0); HEMATOCRIT 24.8 % (38.2-49.6); HEMOGLOBIN 7.6 g/dL (14.0-18.0); LYMPHOCYTES # (AUTO) 0.3 (1.0-3.2); LYMPHOCYTES % 8.2 % (18.0-39.1); MEAN CORPUSCULAR HEMOGLOBIN 26.9 pg (28-32); MEAN CORPUSCULAR HGB CONC 30.6 g/dL (31-35); MEAN CORPUSCULAR VOLUME 87.6 fL (81-99); MONOCYTES # (AUTO) 0.7 (0.2-0.8); MONOCYTES % 16.8 % (4.4-11.3); NEUTROPHILS # (AUTO) 2.9 (2.1-6.9); NEUTROPHILS % 73.9 % (38.7-80.0); PLATELET COUNT 182 x10e3/uL (140-360); RED BLOOD COUNT 2.83 x10e6/uL (4.3-5.7); RED CELL DISTRIBUTION WIDTH 18.1 % (11.7-14.4)
[2018-03-04 08:33] VITALS: BP 163/99
[2018-03-04] MEDS: DEXAMETHASONE 4 MG TAB PO SCH (09:08)
[2018-03-04] MEDS: VANCOMYCIN 750MG/NS 150ML IVPB 150 ML IV SCH (09:08)
[2018-03-04 09:19] VITALS: BP 163/99
[2018-03-04] MEDS: LIDOCAINE 5% PATCH TP SCH (10:03)
[2018-03-04 12:16] VITALS: BP 164/103
--- NOTE | 2018-03-05 11:07 | Discharge Summary ---
FINAL DIAGNOSES 1. Acute compression fracture of the spine. 2. Crohn disease. 3. Glioblastoma multiforme. 4. Percutaneous endoscopic gastrostomy tube status. 5. History of hypertension. 6. Anemia. ADMISSION HISTORY AND HOSPITAL COURSE: Mr. Borges is a 37-year-old male who presented to the emergency room with acute back pain. Lumbar spine MRI was done, which showed evidence of acute osteoporotic compression fracture of L2, L3 and L4 vertebral bodies. The patient was started on IV analgesics. Pain management was consulted. Radiology was consulted for kyphoplasty, which was done. Post kyphoplasty, the patient did well. GI was consulted as the patient had a history of short bowel syndrome and Crohn disease. Neurology also evaluated the patient during this stay as the patient has lumbar spine fracture and weakness. Chest x-ray was showing pneumonia as well. Dr. Lundberg was consulted from [place]. IV antibiotics were continued. The patient did well after the kyphoplasty. He opted to sign out against medical advice. Hence, discharge medication list was never reviewed. No prescription was given to him. CARLOS JOLLY MD Job#: [id number] [place]
--- NOTE | 2018-03-13 10:19 | Diagnostic Imaging Report ---
History:37 yo male with multiple comorbidities, Crohn's disease, glioblastoma, large bowel resection, chemotherapy, radiation therapy, present with acute L2 and L3 compression fractures failing conservative therapy and prior L4 vertebroplasty Comparison studies:CT 03/02/2018 MRI Lumbar Spine 02/27/2018 Procedure L2 and L3 Vertebral Augmentation Codes: ,67165 Percutaneous vertebral augmentation, 1 vertebral body, unilateral or bilateral cannulation, inclusive of all imaging guidance; lumbar ,28005 Percutaneous vertebral augmentation,1 vertebral body, unilateral or bilateral cannulation, inclusive of all imaging guidance; each additional thoracic or lumbar vertebral body, , , , , ,46927 Moderate Sedation provided by the same physician performing the diagnostic or therapeutic service that the sedation supports, for patients 5 years of age or older for the first 30 minutes,25236 each additional 15 minutes of intra service time Sedation: Moderate sedation administered by interventional radiology nurse under supervision of the interventional radiologist with continuous hemodynamic monitoring for 60 minutes. Physician: Reinaldo Lewis MD Medications: Fentanyl 200 mcg IV, Versed 4mg IV Antibiotics: Ancef 1 gm IV administered by slow infusion 15 prior to start of case. Fluoroscopy : 3.2 minutes Contrast: 0 ml Radiation exposure:811.7 cGycm2 Technique: Following informed written consent, patient was placed in a prone position on the angiography table. According to universal protocol, preprocedural time-out was performed with team members agreeing on patient identity, correct site and procedure to be done. The skin was clean, prepped and draped in the usual sterile fashion. Manager Book images were obtained. Local and periosteal anesthesia was injected and conscious sedation was administered. Then the L3 vertebral body was accessed under fluoroscopic guidance using a unipedicular approach. Cavity creation was performed using an inflatable balloon tamp. Then under fluoroscopic guidance 3 cc's of [place] HV PMMA was injected into the vertebral body. Then the L2 vertebral body was accessed under fluoroscopic guidance using a unipedicular approach. Cavity creation was performed using an inflatable balloon tamp. Then under fluoroscopic guidance 2 cc's of [place] HV PMMA was injected into the vertebral body. No cement extravasation was seen. Needle was then removed and hemostasis was acquired by manual compression. A sterile dressing was applied. Procedure was well tolerated and the patient remained neurologically intact and unchanged during and following the procedure. Findings: L2 and L3 compression fracture. Post procedure imaging demonstrates bilateral distribution of PMMA without cement extravasation. Outside prior L4 vertebroplasty with disk space extravasation. Impression: 1. L2 and L3 vertebral augmentation with inflatable balloon tamp, technically and clinically successful. 2. Per PQRS criteria, patient should be screened for osteoporosis. Signed by: Dr. Reinaldo Lewis M.D. on 03/06/2018 8:55 AM
== END 2018-03-04 11:58 | disposition left against medical advice (07) | DRG 515 ==
LOC: ER 18:49 → ERHOLD 21:21 → MED/SURG 02-28 00:52
PROVIDERS: ADMIT Internal Medicine; ATTEND Internal Medicine
PROC: 0QS03ZZ Reposition Lumbar Vertebra, Percutaneous Approach (ICD-10-PCS; principal; 2018-03-02)
PROC: 0QU03JZ Supplement Lumbar Vertebra with Synthetic Substitute, Percutaneous Approach (ICD-10-PCS; 2018-03-02)
DX: M80.88XA Other osteoporosis with current pathological fracture, vertebra(e), initial encounter for fracture (principal); J18.9 Pneumonia, unspecified organism; K50.90 Crohn's disease, unspecified, without complications; C71.9 Malignant neoplasm of brain, unspecified; G40.89 Other seizures; K91.2 Postsurgical malabsorption, not elsewhere classified; W19.XXXA Unspecified fall, initial encounter; Y93.9 Activity, unspecified; Z93.1 Gastrostomy status; I10 Essential (primary) hypertension; D50.9 Iron deficiency anemia, unspecified; G89.29 Other chronic pain; E66.9 Obesity, unspecified; Z68.30 Body mass index [BMI] 30.0-30.9, adult; M51.15 Intervertebral disc disorders with radiculopathy, thoracolumbar region
CPT/HCPCS: 22514; 36415; 71045; 72131; 72148; 74018; 74176; 74470; 80048; 80053; 80202; 80307; 81001; 82550; 82553; 83540; 83605; 83630; 83993; 84466; 84484; 85025; 85610; 85730; 87040; 87045; 87086; 87177; 87493; 93005; 94640; 97139; 99284; J0456; J0690; J1170; J1200; J1642; J2001; J2060; J2250; J2270; J2543; J2550; J2765; J3370; J3480; J7030; J7040; J7042